=== PATIENT | male | born 1985 | race Caucasian/White ===

== ENCOUNTER 2024-03-14 10:45 | Emergency (ER) | payer MEDICARE, SELFPAY ==
[2024-03-14 10:46] VITALS: PULSE 72; RESP 18; O2SAT 99; BMI 39.0
[2024-03-14 10:48] VITALS: BP 139/96; PULSE 83; RESP 18; TEMP 36.8; O2SAT 95
--- NOTE | 2024-03-14 11:17 | EDRME_ITS ---
Rapid Medical Screening Exam RME Arrival date/time: 03/14/24 10:45 Chief Complaint: Anxiety Time Seen by Provider: 03/14/24 11:05 Vital signs: Vital Signs Temperature 98.2 F 03/14/24 10:48 Pulse Rate 83 03/14/24 10:48 Respiratory Rate 18 03/14/24 10:48 Blood Pressure 139/96 H 03/14/24 10:48 Pulse Oximetry (%) 95 03/14/24 10:48 Oxygen Delivery Method Room Air 03/14/24 10:48 RME Narrative: Dizziness and shakiness since waking up this morning. Patient reports smoking meth [employer]ized [employer]. States he felt a poke to his right lower leg few hours ago, it felt like a needle but no needle was present or seen.
[2024-03-14 12:12] LABS: Basophils # (Auto) 0.1 Thou/mm3 (0.0-0.2); Basophils % (Auto) 1 % (0-2.5); Eosinophils # (Auto) 0.4 Thou/mm3 (0.0-0.5); Eosinophils % (Auto) 3 % (0-10); Hematocrit 53.6 % (41.0-53.0); Hemoglobin 17.5 g/dL (13.5-16.0); Immature Granulocytes % (Auto) 1 % (0-0); Immature Granulocytes Auto 0.08 Thou/mm3 (0.00-0.00); Lymphocytes # (Auto) 2.7 Thou/mm3 (1.0-4.8); Lymphocytes % (Auto) 19 % (10-50); Mean Corpuscular HGB Conc 32.6 g/dl (31.0-37.0); Mean Corpuscular Hemoglobin 28.9 pg (25.0-35.0); Mean Corpuscular Volume 89 fL (80-100); Monocytes % (Auto) 7 % (0-12); Neutrophils # (Auto) 10.1 Thou/mm3 (1.8-7.7); Neutrophils % (Auto) 71 % (37-80); Nucleated Red Blood Cell % 0 /100 WBC (0); Platelet Count 198 Thou/mm3 (140-440); RDW Standard Deviation 44.8 fL (35.1-43.9); Red Blood Count 6.05 Miln/mm3 (4.50-5.90); White Blood Count 14.4 Thou/mm3 (3.8-10.6)
[2024-03-14 12:41] LABS: Alanine Aminotransferase 90 U/L (10-49); Albumin, Serum 5.6 gm/dL (3.5-5.0); Albumin/Globulin Ratio 1.4 (1.2-2.2); Alcohol, Blood Medical < 3.0 mg/dL (0-10.0); Alkaline Phosphatase 126 U/L (46-116); Anion Gap 9 (7-16); Aspartate Amino Transferase 94 U/L (0-34); BUN/Creatinine Ratio 13 Ratio (12-20); Bilirubin,Total 0.9 mg/dL (0.3-1.2); Blood Urea Nitrogen 25 mg/dL (9-23); Calcium 10.7 mg/dL (8.3-10.6); Calcium (Corrected) 10.7 mg/dL (8.5-10.1); Carbon Dioxide 24.5 mMol/L (20.0-31.0); Chloride 103 mMol/L (98-107); Estimated Creatinine Clearance 66.7 mL/min (>60); Globulin 3.9 gm/dL (2.3-3.5); Glucose 105 mg/dL (74-106); Osmolality,Calculated 276 (275-295); Potassium 3.7 mMol/L (3.4-5.1); Sodium 136 mMol/L (136-145); Total Protein 9.5 gm/dL (5.7-8.2); Troponin I 0.027 ng/mL (0.0-0.045); eGFR 42 See Note
--- NOTE | 2024-03-14 13:25 | PC.NURSE ---
CALLED FROM [facility] AND NO ANSWER
--- NOTE | 2024-03-14 14:25 | PC.NURSE ---
CALLED FROM [facility] AND NO ANSWER
--- NOTE | 2024-03-14 14:31 | PC.NURSE ---
[facility] FROM [facility] AND NO ANSWER. PT NOT FOUND INSIDE THE E.D. OR OUTSIDE
== END 2024-03-14 14:32 | disposition left against medical advice (07) ==
PROVIDERS: Physician Assistant; Emergency Provider Emergency Medicine
DX: R42 Dizziness and giddiness (principal); Z53.29 Procedure and treatment not carried out because of patient's decision for other reasons
CPT/HCPCS: 36415; 80053; 80307; 80320; 81001; 84484; 85025; 93005; 99281; G0480

== ENCOUNTER 2024-11-02 11:53 | Emergency (ER) | payer MEDICAID, SELFPAY ==
[2024-11-02 11:54] VITALS: BMI 43.0
[2024-11-02 11:59] VITALS: BP 157/107; PULSE 89; RESP 18; TEMP 36.7; O2SAT 97
--- NOTE | 2024-11-02 12:18 | XR_ITS ---
Examination: Hand, left 3 views Technique: Hand AP, oblique, lateral 3 views Date and time of exam: November 02, 2024 1226 hours INDICATIONS: Diabetic to the hand today with second digit pain. FINDINGS: Soft tissue amputation second digit tip No definite fracture fracture No foreign body IMPRESSION: Soft tissue amputation second digit tip
--- NOTE | 2024-11-02 12:40 | EDNOTE_ITS ---
<Statement entered by Malinda Mendez MD - 11/02/24 17:22> As co-signing physician, I was present and available for consult prn. I concur with the plan and care as documented by the midlevel provider. ED Animal Bite RME/HPI General Chief Complaint: Animal Bite Stated Complaint: DOG BITE, TIP OF L) INDEX FINGER CAME OFF Time Seen by Provider: 11/02/24 12:00 Source: patient Arrival date/time: 11/02/24 11:53 39-year-old male with no known medical history presents to the emergency room with a chief complaint of a dog bite to his left index finger. The tip of the patient's finger completely came off. Mode of arrival: ambulatory Limitations: no limitations Related Data Previous Rx's ?Medication ?Instructions ?Recorded cyclobenzaprine 10 mg tablet 10 mg PO HS PRN muscle sp asm #10 11/27/18 tabs ibuprofen 600 mg tablet 600 mg PO Q6H PRN pain #30 t abs 11/27/18 amoxicillin 875 mg-potassium 1 tab PO BID 7 days #14 t abs 11/02/24 clavulanate 125 mg tablet Allergies Allergy/AdvReac Type Severity Reaction Status Date / Time No Known Allergies Allergy Verified 11/02/24 11:56 Review of Systems Review of Systems Systems Reviewed: All systems reviewed, normal except as documented Constitutional Constitutional: Reports system reviewed and no additional complaints, except as documented, Denies fatigue, Denies fever(s), Denies headache(s) and Denies weakness Eyes Eyes: Reports system reviewed and no additional complaints, except as documented, Denies blurry vision and Denies change in vision ENT Ears, Nose, Mouth, and Throat: Reports system reviewed and no additional complaints, except as documented, Denies otalgia, Denies headache(s), Denies nasal congestion, Denies throat swelling and Denies vertigo Cardiovascular Cardiovascular: Reports system reviewed and no additional complaints, except as documented, Denies chest pain, Denies dyspnea and Denies dyspnea on exertion Respiratory Respiratory: Reports system reviewed and no additional complaints, except as documented, Denies chest congestion, Denies cough, Denies dyspnea, Denies dyspnea on exertion and Denies wheezing Gastrointestinal Gastrointestinal: Reports system reviewed and no additional complaints, except as documented, Denies abdominal pain, Denies cramping, Denies nausea and Denies vomiting Genitourinary Genitourinary: Reports system reviewed and no additional complaints, except as documented, Denies dysuria and Denies hematuria Musculoskeletal Musculoskeletal: Reports system reviewed and no additional complaints, except as documented and Denies back pain Integumentary/Breasts Skin/Breast: Reports system reviewed and no additional complaints, except as documented and Reports wounds Neurologic Neurologic: Reports system reviewed and no additional complaints, except as documented, Denies confusion, Denies headache(s), Denies lack of coordination, Denies vertigo and Denies weakness Psychiatric Psychiatric: Reports system reviewed and no additional complaints, except as documented, Denies anxiety, Denies confusion, Denies depression, Denies paranoia, Denies suicidal ideation and Denies tactile hallucinations Endocrine Endocrine: Reports system reviewed and no additional complaints, except as documented and Denies fatigue Hematologic/Lymphatic Hematologic/Lymphatic: Reports system reviewed and no additional complaints, except as documented and Denies lymphadenopathy Allergic/Immunologic Allergic/Immunologic: Reports system reviewed and no additional complaints, except as documented, Denies throat swelling, Denies urticaria and Denies wheezing Past Medical History Past Medical History CARDIAC: Negative Cardiac Disorders or Congestive Heart Failure RESPIRATORY: Positive Asthma (SLEEP APNEA); Negative Chronic Obstructive Pulmonary Disease (COPD) GENITOURINARY: Negative Renal Disease ENDOCRINE: Negative Diabetes Mellitus Type 1 or Diabetes Mellitus Type 2 HEMATOLOGIC: Negative Sickle Cell Disease Social History SMOKING STATUS: Current every day smoker ED Exam General Limitations: Present no limitations General appearance: Present alert and in no apparent distress Head Head exam: Present atraumatic Eye Eye exam: Present normal appearance, PERRL and EOMI ENT ENT exam: Present normal exam, normal oropharynx and mucous membranes moist Neck Neck exam: Present normal inspection, full ROM and trachea midline Chest Chest inspection: Present normal inspection and symmetric chest wall rise Respiratory Respiratory exam: Present normal lung sounds bilaterally Cardiovascular Cardiovascular exam: Present regular rate, normal rhythm and normal heart sounds Abdominal Exam Abdominal exam: Present soft and normal bowel sounds Extremities Exam Extremities exam: Present normal inspection and full ROM Expanded Upper Extremity Exam Shoulder exam: Present normal inspection Arm exam: Present normal inspection Elbow exam: Present normal inspection Forearm/Wrist exam: Present normal inspection Hand exam: Present full ROM, amputation and other Hand L/R front image: 2 1. other (Amputation of the tip of the left index finger) Vascular exam: Normal capillary refill Back Exam Back exam: Present normal inspection and full ROM Neurological Exam Neurological exam: Present alert, oriented X3 and CN II-XII intact Psychiatric Psychiatric exam: Present normal affect and normal mood Skin Skin exam: Present warm, dry, intact and normal color Course Quality Measures none Orders Category Date Time Status Insert IV STAT Care 11/02/24 12:18 Active Wound Care X1 Care 11/02/24 12:18 Active XR hand comp LT min 3V Stat Exams 11/02/24 12:18 Completed ceFAZolin/D5W 1 GM IVPB [Ancef Ivpb] Med 11/02/24 12:18 Discontinued 1 gm in 50 ml IV X1 Vital Signs Vital signs: Vital Signs Temperature 98.0 F 11/02/24 11:59 Pulse Rate 89 11/02/24 11:59 Respiratory Rate 18 11/02/24 11:59 Blood Pressure 157/107 H 11/02/24 11:59 Pulse Oximetry (%) 97 11/02/24 11:59 Animal Bite MDM Narrative MDM Narrative:: 39-year-old male with no known medical history presents to the emergency room with a chief complaint of a dog bite to his left index finger. The tip of the patient's finger completely came off. Patient is hemodynamically stable and in no apparent distress Physical examination shows an amputation of the tip of the left index finger. Patient states he was breaking up a dog fight when the dog bit him in his finger. The tip of his left index finger was completely amputated. The area was cleaned with normal saline and irrigated extensively then it was cleaned with Betadine. The orthopedic doctor on-call Dr. Bliss was consulted and recommendations were to clean the wound and wrap it with Xeroform and another layer of Kerlix. IV Ancef was given to the patient. Patient was discharged with oral antibiotics. Patient's tetanus vaccination is up-to-date. Patient was given strict orders to follow-up with primary care provider as he will need a referral to a general hand surgeon for further management of this wound. This case was consulted with my attending physician Dr. MENDEZ who agreed that the patient is ready for discharge. Patient was discharged and educated to follow-up with primary care provider in the next 24 to 48 hours and return to the emergency room for any evidence of worsening signs or symptoms Patient data External records reviewed:: [facility] previous records Clinical information provided by:: patient Social determinants that could affect healthcare access:: none Patient has the following chronic illnesses:: No chronic illness How is presenting disease/condition affected by chronic disease/condition?: no chronic disease Evaluation data The following diagnostics were reviewed and interpreted by me:: lab results and radiology exam(s) Lab and/or radiology exams considered but not ordered:: Labs and radiology exams considered in order Interpretation Summary: X-ray left hand-FINDINGS: Soft tissue amputation second digit tip No definite fracture fracture No foreign body IMPRESSION: Soft tissue amputation second digit tip Medications / Prescriptions Medications or Prescriptions considered but not ordered:: Medication given Medication administrations:: Medication Administration History Discontinued Medications Cefazolin Sodium/Dextrose (Ancef Ivpb) 1 gm in 50 mls @ 100 mls/hr IV X1 ONE Stop: 11/02/24 12:47 Last Infusion: 11/02/24 14:42 Dose: Infused Documented By: Admin: 11/02/24 13:05 Dose: 100 mls/hr Documented By: PRIYA Medication given Consultations Consultation(s) initiated? (list below): No Diagnosis Differential diagnosis animal bite: bite by animal, dog bite and other (Fingertip amputation) Most likely diagnosis given after review of the tests above:: Fingertip amputation Admission Indicated Admission indicated?: not indicated Admission Request Was there a request for admission?: No Disposition Plan Disposition Plan: Discharge Discharge Attestation Discharge Attestation: The patient and all family members were given an opportunity to ask questions and understood the discharge instructions. Discharge instructions specifically effects, indications for sooner follow up or return to the emergency department, and the expected course of current diagnosis. Patient condition: Stable Discharge Plan Plan Patient Disposition: HOME (Self Care) Discharge Disposition comment: Stable Prescriptions/Referrals Prescriptions/Med Rec: New amoxicillin-pot clavulanate 875-125 mg tablet 1 tab PO BID 7 Days Qty: 14 0RF No Action ibuprofen 600 mg tablet 600 mg PO Q6H PRN (Reason: pain) Qty: 30 0RF cyclobenzaprine 10 mg tablet 10 mg PO HS PRN (Reason: muscle spasm) Qty: 10 0RF Referrals: No Primary/Family,Physician [Primary Care Provider] - In 1 week Problem List Clinical Impression: Fingertip amputation Patient/Caregiver Discharge Instructions Education Materials: ED Finger Tip Amputation Open ... Additional Instructions: Please follow-up with your primary care provider in the next 24 to 48 hours. You will need a referral to a hand specialist for further management of your fingertip amputation. A dose of antibiotics was given here in the emergency room and you were sent a prescription for oral antibiotics. Please keep the area clean and dry. For any evidence of worsening signs or symptoms return to the emergency room immediately Print Language: Estonian Stand Alone Forms: Candice Award Info., Patient Portal Info Letter PA/PLANT CYTOLOGIST Supervising Physician PA/MATTHEW Supervising Physician: Dr. MENDEZ
[2024-11-02] MEDS: ceFAZolin/D5W 1 GM IVPB 1 GM/50 ML BAG IV (13:05)
== END 2024-11-02 14:50 | disposition home or self-care (01) ==
PROVIDERS: Emergency Provider Emergency Medicine
DX: S68.121A Partial traumatic metacarpophalangeal amputation of left index finger, initial encounter (principal); W54.0XXA Bitten by dog, initial encounter
CPT/HCPCS: 73130; 96365; 96366; 99283; J0689